=== PATIENT | male | born 1985 | race American Indian/Alaskan Native ===

== ENCOUNTER 2017-03-06 19:49 | Emergency (ER) | payer SELFPAY ==
[2017-03-06 20:39] VITALS: BP 133/89
[2017-03-06 21:34] LABS: Hemoglobin 14.4 gm/dl (11.8-15.2); Mean Corpuscular HGB Conc 33 % (32-34); Mean Corpuscular Hemoglobin 30 pg (28-32); Mean Corpuscular Volume 91 fl (84-94); Platelet Count 228 K/mm3 (140-440); Red Blood Count 4.85 M/mm3 (3.65-5.03); Red Cell Distribution Width 13.9 % (13.2-15.2); White Blood Count 5.4 K/mm3 (4.5-11.0)
[2017-03-06 21:49] LABS: Alanine Aminotransferase 45 units/L (7-56); Albumin 4.7 g/dL (3.9-5); Albumin/Globulin Ratio 1.4 %; Alkaline Phosphatase 92 units/L (35-129); Anion Gap 23 mmol/L; Blood Urea Nitrogen 7 mg/dL (9-20); Calcium 9.1 mg/dL (8.4-10.2); Carbon Dioxide 21 mmol/L (22-30); Chloride 101.7 mmol/L (98-107); Glucose 101 mg/dL (75-100); Sodium 142 mmol/L (137-145); Total Protein 8.1 g/dL (6.3-8.2)
[2017-03-06 22:16] LABS: Blastocytes % (Manual) 0 %; Diff Status Complete; RBC Morphology Normal
--- NOTE | 2017-03-08 15:53 | ED Elopement Review ---
ED Pt Elopement review - Results review Lab results: Laboratory Tests 03/06/17 03/06/17 03/06/17 21:15 21:15 21:15 WBC 5.4 RBC 4.85 Hgb 14.4 Hct 44.0 MCV 91 MCH 30 MCHC 33 RDW 13.9 Plt Count 228 Eos % (Auto) Commercial Plumber Add Manual Diff Complete Total Counted 100 Seg Neuts % (Manual) 34.0 L Band Neutrophils % 1.0 Lymphocytes % (Manual) 38.0 H Reactive Lymphs % (Man) 0 Monocytes % (Manual) 12.0 H Eosinophils % (Manual) 14.0 H Basophils % (Manual) 1.0 Metamyelocytes % 0 Myelocytes % 0 Promyelocytes % 0 Blast Cells % 0 Nucleated RBC % Not Reportable Seg Neutrophils # Man 1.8 Band Neutrophils # 0.1 Lymphocytes # (Manual) 2.1 Abs React Lymphs (Man) 0.0 Monocytes # (Manual) 0.6 Eosinophils # (Manual) 0.8 H Basophils # (Manual) 0.1 Metamyelocytes # 0.0 Myelocytes # 0.0 Promyelocytes # 0.0 Blast Cells # 0.0 WBC Morphology Not Reportable Hypersegmented Neuts Not Reportable Hyposegmented Neuts Not Reportable Hypogranular Neuts Not Reportable Smudge Cells Not Reportable Toxic Granulation Not Reportable Toxic Vacuolation Not Reportable Dohle Bodies Not Reportable Pelger-Huet Anomaly Not Reportable Silvia Rods Not Reportable Platelet Estimate Appears normal Clumped Platelets Not Reportable Plt Clumps, EDTA Not Reportable Large Platelets Not Reportable Giant Platelets Not Reportable Platelet Satelliting Not Reportable Plt Morphology Comment Not Reportable RBC Morphology Normal Dimorphic RBCs Not Reportable Polychromasia Not Reportable Hypochromasia Not Reportable Poikilocytosis Not Reportable Anisocytosis Not Reportable Microcytosis Not Reportable Macrocytosis Not Reportable Spherocytes Not Reportable Pappenheimer Bodies Not Reportable Sickle Cells Not Reportable Target Cells Not Reportable Tear Drop Cells Not Reportable Ovalocytes Not Reportable Helmet Cells Not Reportable Pal[place] Bodies Not Reportable Orland Rings Not Reportable Jose Cells Not Reportable Bite Cells Not Reportable Crenated Cell Not Reportable Elliptocytes Not Reportable Acanthocytes (Spur) Not Reportable Rouleaux Not Reportable Hemoglobin C Crystals Not Reportable Schistocytes Not Reportable Malaria parasites Not Reportable Chadwick Bodies Not Reportable Hem Pathologist Commnt No Sodium 142 Potassium 4.0 Chloride 101.7 Carbon Dioxide 21 L Anion Gap 23 BUN 7 L Creatinine 1.0 Estimated GFR > 60 BUN/Creatinine Ratio 7.00 Glucose 101 H Calcium 9.1 Total Bilirubin 1.00 AST 34 ALT 45 Alkaline Phosphatase 92 Total Protein 8.1 Albumin 4.7 Albumin/Globulin Ratio 1.4 Plasma/Serum Alcohol 0.19 H - Call Back decision Pt Call Back Decision: Call pt to return to ED IGGY (Call police - patient needs safety check and return to ED)
== END 2017-03-07 01:31 | disposition left against medical advice (07) ==
LOC: ED 19:49
DX: R45.851 Suicidal ideations (principal); Z53.21 Procedure and treatment not carried out due to patient leaving prior to being seen by health care provider
CPT/HCPCS: 36415; 80053; 85007; 85025; G0480; 80320

== ENCOUNTER 2017-07-30 19:07 | Emergency (ER) | payer SELFPAY ==
[2017-07-30 20:04] LABS: Urine Drugs of Abuse Note Disclamer
[2017-07-30 20:23] LABS: Basophils % (Auto) 0.5 % (0.0-1.8); Eosinophils % (Auto) 11.1 % (0.0-4.3); Hemoglobin 14.7 gm/dl (11.8-15.2); Mean Corpuscular HGB Conc 33 % (32-34); Mean Corpuscular Hemoglobin 30 pg (28-32); Mean Corpuscular Volume 90 fl (84-94); Platelet Count 246 K/mm3 (140-440); Red Blood Count 4.97 M/mm3 (3.65-5.03); Red Cell Distribution Width 13.8 % (13.2-15.2); White Blood Count 5.8 K/mm3 (4.5-11.0)
--- NOTE | 2017-07-30 20:25 | Emergency Department Report ---
ED Psych HPI - General Chief Complaint: Psych Stated Complaint: SUICIDE ATTEMPT Time Seen by Provider: 07/30/17 20:14 Source: EMS Mode of arrival: Stretcher - History of Present Illness Initial Comments: 31 YO MALE THT TOOK 11 GOODY POWDERS AND DRANK 6 BEERS 3 HRS AGO . HE THEN DRANK A LOT OF WATER AND COFFEE TO GET RID OF IT. EMS STATES THT HE EXPRESSED INTENT TO KILL HIMSELF WITH THE BEER AND GOODY POWDERS. TO ME PT STATED THAT HE TOOK 11 GOODY POWDERS BECAUSE HIS ENTIRE LEFT SIDE HAS BEEN IN PAIN FOR 1 WEEK. HE WORKS FOR [employer] AND IT IS A HARD JOB Complaint: suicidal ideation -: unknown Associated Psychiatric Symptoms: none Associated Symptoms: denies other symptoms - Related Data Previous Rx's Medication Instructions Recorded Last Taken Type Albuterol Sulfate [Ventolin HFA] 2 puff IH Q4H PRN #2 hfa.aer.ad 10/10/14 Unknown Rx Fluticasone Propionate [Flonase] 2 sprays NS QDAY #1 bottle 10/10/14 Unknown Rx Loratadine [Claritin] 10 mg PO DAILY #30 tablet 10/10/14 Unknown Rx predniSONE [Deltasone] 40 mg PO QDAY #10 tab 10/10/14 Unknown Rx Allergies Allergy/AdvReac Type Severity Reaction Status Date / Time No Known Allergies Allergy Unverified 10/16/13 15:50 ED Review of Systems ROS: Stated complaint: SUICIDE ATTEMPT Other details as noted in HPI Constitutional: denies: chills, fever Eyes: denies: eye pain, eye discharge, vision change ENT: denies: ear pain, throat pain Respiratory: denies: cough, shortness of breath, wheezing Cardiovascular: denies: chest pain, palpitations Endocrine: no symptoms reported Gastrointestinal: denies: abdominal pain, nausea, diarrhea Genitourinary: denies: urgency, dysuria Musculoskeletal: arthralgia (LEFT BODY). denies: back pain, joint swelling Skin: denies: rash, lesions Neurological: denies: headache, weakness, paresthesias Psychiatric: denies: anxiety, depression Hematological/Lymphatic: denies: easy bleeding, easy bruising ED Past Medical Hx - Past Medical History Previous Medical History?: Yes Hx Asthma: Yes - Surgical History Past Surgical History?: Yes Additional Surgical History: CIRCUMCISION - Social History Smoking Status: Current Every Day Smoker Substance Use Type: Alcohol - Medications Home Medications: Home Medications Medication Instructions Recorded Confirmed Last Taken Type Albuterol Sulfate [Ventolin HFA] 2 puff IH Q4H PRN #2 hfa.aer.ad 10/10/14 Unknown Rx Fluticasone Propionate [Flonase] 2 sprays NS QDAY #1 bottle 10/10/14 Unknown Rx Loratadine [Claritin] 10 mg PO DAILY #30 tablet 10/10/14 Unknown Rx predniSONE [Deltasone] 40 mg PO QDAY #10 tab 10/10/14 Unknown Rx ED Physical Exam - General Limitations: No Limitations General appearance: alert, in no apparent distress - Head Head exam: Present: atraumatic, normocephalic - Eye Eye exam: Present: normal appearance - ENT ENT exam: Present: mucous membranes moist - Neck Neck exam: Present: normal inspection, full ROM - Respiratory Respiratory exam: Present: normal lung sounds bilaterally. Absent: respiratory distress - Cardiovascular Cardiovascular Exam: Present: regular rate, normal rhythm. Absent: systolic murmur, diastolic murmur, rubs, gallop - GI/Abdominal GI/Abdominal exam: Present: soft, normal bowel sounds - Rectal Rectal exam: Present: deferred - Extremities Exam Extremities exam: Present: normal inspection, full ROM - Back Exam Back exam: Present: normal inspection, full ROM - Neurological Exam Neurological exam: Present: alert, oriented X3, CN II-XII intact - Psychiatric Psychiatric exam: Present: depressed, flat affect - Skin Skin exam: Present: warm, dry, intact, normal color. Absent: rash ED Course Vital Signs 07/30/17 07/30/17 07/30/17 19:49 22:14 22:20 Temperature 98.4 F 98.4 F Pulse Rate 90 99 H Respiratory 18 20 Rate Blood Pressure 180/100 Blood Pressure 162/83 [Left] O2 Sat by Pulse 97 96 99 Oximetry ED Medical Decision Making - Lab Data Result diagrams: 07/30/17 20:05 07/30/17 20:05 Critical care attestation.: If time is entered above; I have spent that time in minutes in the direct care of this critically ill patient, excluding procedure time. ED Disposition Clinical Impression: Suicide attempt, Medical clearance for psychiatric admission Depression Qualifiers: Depression Type: unspecified Qualified Code(s): F32.9 - Major depressive disorder, single episode, unspecified Alcohol intoxication Qualifiers: Complication of substance-induced condition: with unspecified complication Qualified Code(s): F10.929 - Alcohol use, unspecified with intoxication, unspecified Disposition: [id number] PSY HOSP/PSY UNIT Is pt being admited?: Yes Condition: Stable Referrals: CULLEN PEOPLES MD [Primary Care Provider] - 3-5 Days Time of Disposition: 20:57 ([facility] HIS HERE AND IS FING PLACEMENT FOR HIM)
[2017-07-30 20:36] LABS: Anion Gap 24 mmol/L; BUN/Creatinine Ratio 6; Blood Urea Nitrogen 6 mg/dL (9-20); Calcium 9.2 mg/dL (8.4-10.2); Carbon Dioxide 22 mmol/L (22-30); Chloride 103.2 mmol/L (98-107); Glucose 91 mg/dL (75-100); Potassium 4.3 mmol/L (3.6-5.0); Sodium 145 mmol/L (137-145)
[2017-07-30 20:42] LABS: Bilirubin,Urine NEG (Negative); Blood,Urine SM (Negative); Ketones,Urine NEG (Negative); Leukocyte Esterase,Urine NEG (Negative); Nitrite,Urine NEG (Negative); Protein,Urine <15 mg/dL mg/dL (Negative); RBC,Urine < 1.0 /HPF (0.0-6.0); Urobilinogen,Urine < 2.0 mg/dL (<2.0); WBC,Urine < 1.0 /HPF (0.0-6.0)
[2017-07-30] MEDS ORDERED: HALDOL IM ONE (20:53)
--- NOTE | 2017-07-31 11:48 | Consultation ---
History of Present Illness - Reason for Consult Consult date: 07/31/17 Reason for consult: Mental Health Evaluation Requesting physician: WENDIE FABIAN - Chief Complaint Chief complaint: "My life is awful" - History of Present Psychiatric Illness 31 y.o. AA male [facility] attempt by taking multiple goodies powder (11). Today patient is calm and cooperative during the assessment. He stated that he is having financial and relationship problems that has overwhelmed him for the past few months. He stated that he is a social drinker (etoh), but his alcohol consumption has increased in the last week. The patient's alcohol serum 0.26 on admission. He stated that he did try to kill himself when he took the goodies powder. He stated that he became sick after swallowing the powder and called 911. He denies previous suicide attempts. He denies a mental health dx. He denies HI's and AVH's, but would not confirm or deny SI's when asked. He admit to sleep disturbance and a poor appetite. He denies recreational drug use. Medications and Allergies Allergies Allergy/AdvReac Type Severity Reaction Status Date / Time No Known Allergies Allergy Unverified 10/16/13 15:50 Home Medications Medication Instructions Recorded Confirmed Last Taken Type Albuterol Sulfate [Ventolin HFA] 2 puff IH Q4H PRN #2 hfa.aer.ad 10/10/14 Unknown Rx Fluticasone Propionate [Flonase] 2 sprays NS QDAY #1 bottle 10/10/14 Unknown Rx Loratadine [Claritin] 10 mg PO DAILY #30 tablet 10/10/14 Unknown Rx predniSONE [Deltasone] 40 mg PO QDAY #10 tab 10/10/14 Unknown Rx Past psychiatric history - Past Medical History Past Medical History: other (Asthma) Past Surgical History: No surgical history - past Psychiatric treatment and history psychiatric treatment history: Denies a psy hax and fam psy hx. Mental Status Exam - Vital signs Last Vital Signs Temp 98.4 F 07/30/17 22:14 Pulse 99 H 07/30/17 22:14 Resp 20 07/30/17 22:20 BP 162/83 07/30/17 22:14 Pulse Ox 99 07/30/17 22:20 - Exam Narrative exam: MSE: Appearance: calm, cooperative Behavior: regular eye contact Speech: regular rate and tone Mood: "depressed" withdrawn Affect: flat Thought Process: circumstantial Thought Content: denies HI's and AVH's Motor Activity: sitting up in bed Cognition: A/O x3 Insight: fair Judgment: poor Results Result Diagrams: 07/30/17 20:05 07/30/17 20:05 Abnormal lab results 07/30/17 07/30/17 07/30/17 Range/Units 19:30 20:05 20:05 Lymph % (Auto) (13.4-35.0) % Eos % (Auto) (0.0-4.3) % Eos # (0.0-0.4) K/mm3 BUN 6 L (9-20) mg/dL Ur Specific Man[place] 1.002 L (1.003-1.030) Plasma/Serum Alcohol 0.24 H (0-0.07) gm% 07/30/17 Range/Units 20:05 Lymph % (Auto) 41.8 H (13.4-35.0) % Eos % (Auto) 11.1 H (0.0-4.3) % Eos # 0.6 H (0.0-0.4) K/mm3 BUN (9-20) mg/dL Ur Specific [place] (1.003-1.030) Plasma/Serum Alcohol (0-0.07) gm% All other labs normal. Assessment and Plan Assessment and plan: Impression: MDD severe type, single episode. Today patient is calm and cooperative during the assessment. DDx: R/O Bipolar DO, R/O Alcohol Use DO Recommendation/Plan: Continue 1013 with placement to inpatient psy services. Start Remeron 15 mg PO HS for depression, sleep consolidation, and stimulate patient's appetite. Discusses possible suicidality/medication induced conraod with patient reference Remeron.
[2017-07-31] MEDS: REMERON PO SCH (22:14)
--- NOTE | 2017-08-01 10:10 | Progress Note ---
Subjective - Reason for Consult Consult date: 08/01/17 Reason for consult: Psychiatry Follow-up - Chief Complaint Chief complaint: "Hello" 31 y.o. AA male presenting to [facility] for suicide attempt by taking multiple goodies powder (11). Today patient is calm and cooperative during the assessment. He stated reflecting about his actions prior to his admission. He stated that he should have called a crisis line before he swallowed multiple goodies powde. He denies SI/HI's and AVH's. He stated that he slept "well" last night and ate his breakfast this AM. He denies any side effects of his medication. Mental Status Exam - Vital signs Last Vital Signs Temp 98.5 F 08/01/17 08:00 Pulse 60 08/01/17 08:00 Resp 18 08/01/17 08:00 BP 113/60 08/01/17 08:00 Pulse Ox 98 08/01/17 08:00 - Exam Narrative exam: MSE: Appearance: calm, cooperative Behavior: regular eye contact Speech: regular rate and tone Mood: "depressed" Affect: flat Thought Process: circumstantial Thought Content: denies SI/HI's and AVH's Motor Activity: sitting up in bed Cognition: A/O x3 Insight: variable Judgment: variable Assessment and Plan Impression: MDD severe type, single episode. Today patient is calm and cooperative during the assessment. DDx: R/O Bipolar DO, R/O Alcohol Use DO Recommendation/Plan: Continue 1013 with placement to inpatient psy services. Continue Remeron 15 mg PO HS for depression, sleep consolidation, and stimulate patient's appetite. Discusses possible suicidality/medication induced conrado with patient reference Remeron.
[2017-08-01] MEDS: REMERON PO SCH (23:10)
--- NOTE | 2017-08-02 10:22 | Progress Note ---
Subjective - Reason for Consult Consult date: 08/02/17 Reason for consult: Psychiatry Follow-up - Chief Complaint Chief complaint: "When will I leave" 31 y.o. AA male presenting to [facility] for suicide attempt by taking multiple goodies powder (11). Today patient is calm and cooperative during the assessment. He stated that he wish he would have made a better choice on how he handled his crisis prior to his admission to the hospital. He stated that for the first time how alcohol has been a issue in his life. He stated that he want help for his "mental state." He denies SI/HI's and AVH's. He denies any side effects of his medication. Mental Status Exam - Vital signs Last Vital Signs Temp 98.7 F 08/01/17 23:12 Pulse 69 08/01/17 23:12 Resp 16 08/01/17 23:12 BP 119/77 08/01/17 23:12 Pulse Ox 98 08/01/17 23:12 - Exam Narrative exam: MSE: Appearance: calm, cooperative Behavior: regular eye contact Speech: regular rate and tone Mood: "better" Affect: congruent to mood Thought Process: circumstantial Thought Content: denies SI/HI's and AVH's Motor Activity: sitting up in bed Cognition: A/O x3 Insight: variable Judgment: variable Assessment and Plan Impression: MDD severe type, single episode. Today patient is calm and cooperative during the assessment. DDx: R/O Bipolar DO, R/O Alcohol Use DO Recommendation/Plan: Continue 1013 with pending placement to [facility]. Continue Remeron 15 mg PO HS for depression, sleep consolidation, and stimulate patient's appetite. Discusses possible suicidality/medication induced conrado with patient reference Remeron.
[2017-08-02] MEDS: REMERON PO SCH (22:45)
[2017-08-03 18:54] VITALS: BP 125/76
== END 2017-08-03 18:55 ==
LOC: ED 19:07 → EEVIPCON 19:07 → ED 08-03 18:55
DX: F32.9 Major depressive disorder, single episode, unspecified (principal); F10.929 Alcohol use, unspecified with intoxication, unspecified; F17.200 Nicotine dependence, unspecified, uncomplicated; J45.909 Unspecified asthma, uncomplicated; Z79.899 Other long term (current) drug therapy
CPT/HCPCS: 36415; 80048; 80307; 81001; 85025; 99285; G0480; 80320